=== PATIENT | female | born 2000 | race Two or more races ===

== ENCOUNTER 2024-12-08 09:55 | Outpatient (CLI) | payer MEDICAID ==
[2024-12-08 10:51] LABS: Hematocrit 38.9 % (36.0-46.0); Hemoglobin 13.1 g/dL (12.2-16.2); Mean Corpuscular Hemoglobin 30.6 pg (28.0-32.0); Mean Corpuscular Volume 91.0 fL (80.0-100.0); Nucleated Red Blood Cells % 0.1 %
[2024-12-08 12:06] LABS: Alanine Aminotransferase 26 U/L (7-40); Alkaline Phosphatase 74 U/L (46-116); Anion Gap 7 (5-15); BUN/Creatinine Ratio 10.3 (10.0-20.0); Calcium 9.5 mg/dL (8.7-10.4); Carbon Dioxide 28 mmol/L (20-31); Chloride 105 mmol/L (98-107); Glucose 94 mg/dL (74-106); Potassium 4.0 mmol/L (3.5-5.1); Sodium 140 mmol/L (136-145); Total Protein 7.5 g/dL (5.7-8.2)
[2024-12-08 12:07] LABS: Bilirubin, Total 0.6 mg/dL (0.2-1.0)
[2024-12-08 12:12] LABS: Beta HCG, Quantitative 0.0 mIU/mL (1.5-4.2)
[2024-12-08 12:15] LABS: Albumin 4.8 g/dL (3.2-4.8); Blood Urea Nitrogen 8 mg/dL (9-23)
[2024-12-08 13:22] LABS: Thyroid Stimulating Hormone 1.11 uIU/mL (0.55-4.78)
== END 2024-12-08 17:00 | disposition home or self-care (01) ==
LOC: LAB 09:55
DX: N93.9 Abnormal uterine and vaginal bleeding, unspecified (principal)
CPT/HCPCS: 36415; 80053; 82626; 82670; 83036; 83525; 84270; 84402; 84403; 84439; 84443; 84702; 85025; 87086